=== PATIENT | female | born 1995 | race Two or more races ===

== ENCOUNTER → 2020-10-01 13:27 | Outpatient (BNVA) | payer OTHER, SELFPAY | PROVIDERS: Visit Provider Physician Assistant Medical | DX: Z77.21 Contact with and (suspected) exposure to potentially hazardous body fluids (principal) | CPT/HCPCS: 36415; 84450; 84460; 86706; 86803; 87389; 99203 ==

== ENCOUNTER 2020-11-13 14:16 | Outpatient (REF) | payer OTHER, SELFPAY ==
[2020-11-14 04:06] LABS: CT PCR NOT DETECTED (Not Detect.); NG PCR NOT DETECTED (Not Detect.)
== END 2020-11-13 14:17 | disposition home or self-care (01) ==
LOC: HO.LAB 14:16
PROVIDERS: Visit Provider Obstetrics & Gynecology
DX: R10.2 Pelvic and perineal pain (principal)
CPT/HCPCS: 81003; 81025; 87491; 87591

== ENCOUNTER 2020-11-20 14:45 | Outpatient (REF) | payer OTHER, SELFPAY ==
--- NOTE | ~2020-11-20 | US_ITS ---
EXAMINATION:US pelvic complete, US transvaginal CLINICAL INFORMATION: Reason for Exam R10.2 - Pelvic and perineal pain COMPARISON: No priors available. LMP: 10/15/2020 FINDINGS: UTERUS: The uterus is anteverted. Size: 7.6 x 2.9 x 3.3 cm. Uterine mass: There is no uterine mass. Cervix: Grossly unremarkable. Endometrium: No ultrasound evidence of endometrial lesion. endometrial thickness measures 0.91 cm ADNEXA: Normal Right ovary: Normal in size. There is a complex cystic structure probably ovarian follicle 2.2 x 2.2 x 2.8 cm. Left ovary: Normal in size. Complex cystic structure probably a follicle 2.5 x 2.1 x 2.4 cm. Doppler exam: Normal Doppler flow identified in both ovaries. FREE FLUID: Trace amount of free fluid. OTHER FINDINGS: None US/US transvaginal IMPRESSION: Bilateral ovarian cystic structures probably follicles the largest on the left measure up to 2.5 cm. Ultrasound otherwise normal.
--- NOTE | ~2020-11-20 | US_ITS ---
EXAMINATION:US pelvic complete, US transvaginal CLINICAL INFORMATION: Reason for Exam R10.2 - Pelvic and perineal pain COMPARISON: No priors available. LMP: 10/15/2020 FINDINGS: UTERUS: The uterus is anteverted. Size: 7.6 x 2.9 x 3.3 cm. Uterine mass: There is no uterine mass. Cervix: Grossly unremarkable. Endometrium: No ultrasound evidence of endometrial lesion. endometrial thickness measures 0.91 cm ADNEXA: Normal Right ovary: Normal in size. There is a complex cystic structure probably ovarian follicle 2.2 x 2.2 x 2.8 cm. Left ovary: Normal in size. Complex cystic structure probably a follicle 2.5 x 2.1 x 2.4 cm. Doppler exam: Normal Doppler flow identified in both ovaries. FREE FLUID: Trace amount of free fluid. OTHER FINDINGS: None US/US pelvic complete IMPRESSION: Bilateral ovarian cystic structures probably follicles the largest on the left measure up to 2.5 cm. Ultrasound otherwise normal.
== END 2020-11-20 14:46 | disposition home or self-care (01) ==
LOC: HO.HMGCX 14:45
PROVIDERS: Visit Provider Obstetrics & Gynecology
DX: R10.2 Pelvic and perineal pain (principal)
CPT/HCPCS: 76830; 76856

== ENCOUNTER → 2020-12-03 16:02 | Outpatient (BNVA) | payer OTHER, SELFPAY | PROVIDERS: Visit Provider Obstetrics & Gynecology ==

== ENCOUNTER 2020-12-08 12:16 | Outpatient (REF) | payer OTHER, SELFPAY ==
[2020-12-09 09:36] LABS: CA-125 18 U/mL (<35)
== END 2020-12-08 12:17 | disposition home or self-care (01) ==
LOC: HO.LAB 12:16
PROVIDERS: Visit Provider Obstetrics & Gynecology
DX: N83.291 Other ovarian cyst, right side (principal); N83.292 Other ovarian cyst, left side
CPT/HCPCS: 36415; 86304

== ENCOUNTER → 2020-12-10 11:14 | Outpatient (BNVA) | payer OTHER, SELFPAY | PROVIDERS: Visit Provider Obstetrics & Gynecology ==

== ENCOUNTER 2021-03-16 14:07 | Outpatient (REF) | payer OTHER, SELFPAY ==
--- NOTE | ~2021-03-16 | US_ITS ---
EXAMINATION: PELVIC ULTRASOUND CLINICAL INFORMATION: Ovarian cyst COMPARISON: Previous exam 11/20/2020 TECHNIQUE: Transabdominal and transvaginal pelvic ultrasound was performed. Transvaginal exam was performed for better visualization of the uterus and ovaries. FINDINGS: The uterus is anteverted and measures 6.7 x 3.3 x 3.3 cm in dimension. No focal uterine lesion is seen. Endometrial thickness is normal measuring 1.6 cm. The ovaries are normal.. The right ovary measures 4 x 2.2 x 2.5 cm. The left ovary measures 2.6 x 1.6 x 2.6 cm. There is no fluid in the pelvis. US/US transvaginal IMPRESSION: Normal pelvic ultrasound. The previously identified small bilateral complex ovarian cysts on November 2020 exam are no seen.
--- NOTE | ~2021-03-16 | US_ITS ---
EXAMINATION: PELVIC ULTRASOUND CLINICAL INFORMATION: Ovarian cyst COMPARISON: Previous exam 11/20/2020 TECHNIQUE: Transabdominal and transvaginal pelvic ultrasound was performed. Transvaginal exam was performed for better visualization of the uterus and ovaries. FINDINGS: The uterus is anteverted and measures 6.7 x 3.3 x 3.3 cm in dimension. No focal uterine lesion is seen. Endometrial thickness is normal measuring 1.6 cm. The ovaries are normal.. The right ovary measures 4 x 2.2 x 2.5 cm. The left ovary measures 2.6 x 1.6 x 2.6 cm. There is no fluid in the pelvis. US/US pelvic complete IMPRESSION: Normal pelvic ultrasound. The previously identified small bilateral complex ovarian cysts on November 2020 exam are no seen.
== END 2021-03-16 14:08 | disposition home or self-care (01) ==
LOC: HO.HMGCX 14:07
PROVIDERS: Visit Provider Obstetrics & Gynecology
DX: N83.299 Other ovarian cyst, unspecified side (principal)
CPT/HCPCS: 76830; 76856

== ENCOUNTER → 2021-04-01 11:55 | Outpatient (BNVA) | payer OTHER, SELFPAY | PROVIDERS: Visit Provider Obstetrics & Gynecology ==

== ENCOUNTER 2023-06-01 14:19 | Outpatient (REF) | payer SELFPAY | END 2023-06-01 14:20 | disposition home or self-care (01) | LOC: HO.LNP 14:19 | PROVIDERS: Visit Provider Obstetrics & Gynecology | DX: Z12.4 Encounter for screening for malignant neoplasm of cervix (principal); R10.2 Pelvic and perineal pain; N90.89 Other specified noninflammatory disorders of vulva and perineum | CPT/HCPCS: 88142; 99212 ==

== ENCOUNTER 2023-06-01 14:19 | Outpatient (AMB) | payer OTHER, SELFPAY ==
--- NOTE | 2023-06-01 14:22 | MHC.OFFVIS ---
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 No previous Pap smear PFSH Medical History PCOS (polycystic ovarian syndrome) Family History Maternal Grandmother Uterine cancer Social History Alcohol intake: current Alcohol intake frequency: holidays/special occasions only Gender identity: Female Female Reproductive History Menstrual Age of Menarche: 9 Date of last menstrual period: 05/28/23 Review of Systems Const All systems reviewed & are unremarkable except as noted in HPI and below Physical Exam Vital Signs: Last Vital Signs BP 90/66 06/01/23 14:25 BMI result Body Mass Index 24.6 General: Yes no CVA tenderness External Female Exam: normal appearance of the urethra and other (Right labia majora 2 cm lump, nontender) Speculum Exam - Vagina: normal appearance of the vagina, normal palpation, no lesions and no masses Speculum Exam - Cervix: normal appearance of the cervix, normal palpation, no lesions, no masses and nontender Bimanual exam- vagina & uterus: normal bimanual exam, normal palpation, uterine size normal, normal palpation, uterine shape normal, No Cervical tenderness present and non-tender Bimanual Exam- Adnexa, other: normal adnexae Back/Spine/Pelvis Back: no CVA tenderness Assessment & Plan Assessment & Plan Orders: Orders US biopsy subcutaneous skin Today N90.89 - Other specified noninflammatory disorders of vulva and perineum Patient Instructions: Pap smear taken. Discussed with the patient the finding on pelvic exam right labia majora lump 2 cm in size. Differential diagnosis discussed with the patient include but not limited to lipoma, cyst, and others. Will order ultrasound-guided subcutaneous biopsy of the vulvar lump, check the pathology and treat accordingly. Instructions given the patient to schedule ultrasound biopsy follow-up appointment. All questions answered, the patient verbalized understanding Coding Level of Care Code Est Pt Level 3 (67642)
[2023-06-01 14:25] VITALS: BP 90/66; BMI 24.6
== END 2023-06-01 14:51 | disposition home or self-care (01) ==
PROVIDERS: Visit Provider Obstetrics & Gynecology
DX: N90.89 Other specified noninflammatory disorders of vulva and perineum (principal)
CPT/HCPCS: 99213

== ENCOUNTER 2023-06-29 11:00 | Outpatient (REF) | payer OTHER, SELFPAY ==
--- NOTE | ~2023-06-29 | US_ITS ---
CLINICAL HISTORY: Right labial nodule PROCEDURES: 1. Limited preprocedure ultrasound of the right groin. Permanent images saved in PACS. 2. Total of 2 core biopsies of the right labial nodule. 3. Limited post procedure ultrasound of the right groin. Permanent images taken PACS. CLINICIANS: Freddie Dasilva PA-C Preprocedural imaging reviewed with Dr. Garcia MEDICATIONS: -lidocaine 1% 10 mL SQ -Antibiotics: None -For additional details, please see nursing flowsheet. COMPLICATIONS: None ESTIMATED BLOOD LOSS: < 5 ml CONTRAST: None SPECIMENS: Total of 2 20-gauge biopsies of the right labial nodule PROCEDURE NOTE: The procedure, risks, benefits, and alternatives were carefully explained to the patient and written informed consent was obtained. The patient was placed supine on the ultrasound table. A timeout was performed. A limited ultrasound of the right groin was performed to localize the right labial lesion and choose appropriate needle entry and trajectory. The patient was prepped and draped in usual sterile fashion. The skin and subcutaneous tissues were anesthetized with lidocaine. Under ultrasound guidance, a trocar was advanced to the lesion. A 20-gauge core biopsy device was inserted through the double wall needle, with the needle tip advanced into the lesion. Position was confirmed with ultrasound evaluation. A total of 2 core biopsies were obtained. The needle was then removed. A post procedure ultrasound was then obtained. US/US biopsy subcutaneous skin Impression: Ultrasound-guided biopsy of right labial nodule This procedure was performed by Freddie Dasilva PA-C and supervised by Dr. Nathan.
[2023-06-29] MEDS: Lidocaine HCl 1 % MPF 5 ML VIAL SUBCUT (12:24)
== END 2023-06-29 11:01 | disposition home or self-care (01) ==
LOC: HO.US 11:00
PROVIDERS: Visit Provider Obstetrics & Gynecology
DX: N90.89 Other specified noninflammatory disorders of vulva and perineum (principal)
CPT/HCPCS: 11104; 88304; 88305

== ENCOUNTER 2023-07-13 15:57 | Outpatient (AMB) | payer OTHER, SELFPAY ==
--- NOTE | 2023-07-13 16:00 | A.OFFVIS_ITS ---
Intake Intake Visit Reasons: Follow up results Customer Service Officer: Customer Service Officer Present Allergies No Known Allergies [No Known Allergies*] Allergy (Verified 07/13/23 16:01) Is last menstrual period known: Yes Last menstrual period: 06/11/20 Post menopausal: No Patient : No Do you need a note to return to daycare/school/sports/work: Yes (for surgery on monday) HPI HPI Comments History of Present Illness Details Presenting after ultrasound-guided biopsy of right vulvar lump for follow-up. The pathology showed the following: Vulva, right labial soft tissue nodule, core biopsy: Subcutaneous tissue with benign skin adnexal glands, fibrosis and dense chronic inflammatory infiltrate. Comment: Although no malignancy is identified the tissue is non-diagnostic and the etiology of the nodule cannot be made on this tissue. Possibilities include inflammatory response to trauma, cyst, or unsampled benign and malignant neoplasias. Clinical follow-up is necessary with rebiopsy if suspicious [facility]ACED BY [facility] Medical History PCOS (polycystic ovarian syndrome) Family History Maternal Grandmother Uterine cancer Social History Alcohol intake: current Alcohol intake frequency: holidays/special occasions only Gender identity: Female Female Reproductive History Menstrual Age of Menarche: 9 Date of last menstrual period: 06/11/20 Total pregnancies: 2 Full term: 2 Review of Systems Card Reports as per HPI and Reports no additional complaints Resp Reports as per HPI and Reports no additional complaints GI Reports as per HPI and Reports no additional complaints Reports as per HPI Physical Exam Const General: cooperative, healthy appearing and comfortable Chest Chest palpation & inspection: normal inspection of the chest and normal palpation of entire chest wall Breast/axilla inspection: normal inspection of the breasts and normal inspection of the axillae Breast/axilla palpation: normal palpation of the breasts, normal palpation of the axillae and no axillary lymphadenopathy Resp Effort & Inspection: normal respiratory effort Auscultation: clear to auscultation bilaterally Percussion: percussion normal Cardio Palpation: normal PMI Rate: regular rate Rhythm: regular rhythm Heart sounds: no murmurs and no rubs Peripheral pulses: Peripheral pulses 2+ throughout GI Inspection: Yes normal to inspection Palpation (GI): Soft to palpation, nontender, no guarding, not rigid and No hepatosplenomegaly present Percussion: Yes normal to percussion Auscultation: normal bowel sounds Rectal Exam - Female: deferred External Female Exam: other (Right labia majora lump) Assessment & Plan Assessment & Plan (1) Vulvar lump: Comment: Right labia majora Code(s): N90.89 - Other specified noninflammatory disorders of vulva and perineum Plan: Discussed with the patient resolve the pathology. Recommended right vulvar lump excision, d/w patient the procedure, alternatives (do nothing), & all the risks associated with the procedure (bleeding , infection, scar tissue development, chronic dyspareunia, injury to bladder, vessels, bowels, possible need for transfusion with all its risks) then the patient signed the consent . All questions answered, the patient verbalized understanding Coding Level of Care Code Est Pt Level 3 (14157) Diagnoses Vulvar lump N90.89
== END 2023-07-13 16:25 | disposition home or self-care (01) ==
PROVIDERS: Visit Provider Obstetrics & Gynecology
DX: N90.89 Other specified noninflammatory disorders of vulva and perineum (principal)
CPT/HCPCS: 99213

== ENCOUNTER → 2023-07-13 15:57 | Outpatient (BNVA) | payer OTHER, SELFPAY | PROVIDERS: Visit Provider Obstetrics & Gynecology | DX: N90.89 Other specified noninflammatory disorders of vulva and perineum (principal) | CPT/HCPCS: 99212 ==

== ENCOUNTER 2023-07-21 09:57 | Day surgery (SDC) | payer OTHER, SELFPAY ==
--- NOTE | 2023-07-19 14:11 | P.CONAN_ITS ---
Documented by User: Luz Marina Oliveros NP 07/19/23 14:11 HPI - Anesthesia Eval Consult details Narrative: 27yo F for Labial Lump Excision Mass PMFSH Active Problems Active Problems: All Active Problems (Updated 07/13/23 @ 16:19 by Chele Teran MD) Vulvar lump (Acute) Complex cyst of both ovaries (Acute) Pelvic pain (Acute) Past Medical History Medical History PCOS (polycystic ovarian syndrome) Family History Family History Maternal Grandmother Uterine cancer Social History Social History Alcohol intake: current Alcohol intake frequency: holidays/special occasions only Patient Tobacco Use Status: Never used Tobacco Use of substances other than those prescribed or required for medical reasons: Yes Are you DNR?: No Advance Directives: No Advance Directives Information Provided: Yes Gender identity: Female Meds Allergies Allergy/AdvReac Type Severity Reaction Status Date / Time No Known Allergies Allergy Verified 07/21/23 10:44 [No Known Allergies*] Home Medications Medication Instructions Recorded Confirmed Last Taken Type No Known Home Meds 06/01/23 06/01/23 Unknown History Assessment and Plan Assessment Anesthesia Assessment: Chart Reviewed Documented by User: John Pierre MD 07/21/23 11:32 [facility] Past Medical History Medical History PCOS (polycystic ovarian syndrome) Patient : No Family History Family History Maternal Grandmother Uterine cancer Family history of problems with anesthesia: No Surgical History History of Problems with Anesthesia: No Social History Social History Alcohol intake: current Alcohol intake frequency: holidays/special occasions only Patient Tobacco Use Status: Never used Tobacco Use of substances other than those prescribed or required for medical reasons: Yes Are you DNR?: No Advance Directives: No Advance Directives Information Provided: Yes Gender identity: Female Meds Allergies Allergy/AdvReac Type Severity Reaction Status Date / Time No Known Allergies Allergy Verified 07/21/23 10:44 [No Known Allergies*] Home Medications Medication Instructions Recorded Confirmed Last Taken Type No Known Home Meds 06/01/23 06/01/23 Unknown History Exam Airway Mallampati Class: I TM Dist: >3cm Neck ROM: Full Loose/Missing/Broken Teeth: No Heart: ok Lungs: ok Assessment and Plan Assessment Anesthesia Assessment: Anesthesia Plan Discussed Final Anesthetic Review Family History of Problems with Anesthesia: No History of Problems with Anesthesia: No NPO: Yes ASA Class: II Final Preanesthetic Review: No Changes in Pt Med Stat, Meds/Allgs Chart Reviewed, Consent Obtained/Reviewed and Anes Risks/Benef Reviewed Patient Risk: Low Procedure Risk: Low Anesthetic Plan Anesthetic Plan: GA and Agree w/ Assess. and Plan Disposition: Standard PACU
[2023-07-21 10:45] VITALS: BMI 24.1
[2023-07-21 11:18] VITALS: BP 129/69; PULSE 68; RESP 16; TEMP 36.6; O2SAT 97
[2023-07-21] MEDS: Lactated Ringers 1,000 ML 100 ML IVCONT (11:20)
--- NOTE | 2023-07-21 11:26 | MHC.SHP ---
Pre-Procedural Eval Section A Date of Service: 07/21/23 The patient is an INPATIENT: No Changes since office visit: No Cold of Flu in the past 2 weeks, No New Medical Problems, No Changes in Medication and No Patient answered all questions The History & Physical has been completed within 30 days and I have reviewed it.: Yes Section B Chief Complaint: Other specified noninflammatory disorders of vulva Allergies: Allergies Allergy/AdvReac Type Severity Reaction Status Date / Time No Known Allergies Allergy Verified 07/21/23 10:44 [No Known Allergies*] Plan Diagnosis/Plan: Unchanged I have reviewed the history and physical and performed a pertinent physical examination on my patient. No changes have occurred unless specified. Time Spent With Patient Time: Total time managing care of this patient today ____ minutes.
[2023-07-21 11:28] LABS: UPreg QC Valid YES; Urine Pregnancy NEGATIVE (NEGATIVE)
--- NOTE | 2023-07-21 12:11 | PM.OP ---
Brief Operative Note Date of Service: 07/21/23 Pre-op diagnosis: Right vulvar lump Post-op diagnosis: same Procedure: Excision of right vulvar lump Surgeon: Chele Teran MD Anesthesia: GLMA Was an Nurse Midwife/Clinical Instructor used for this Procedure?: No Estimated blood loss (mL): 20 Pathology: other (Right vulvar Subcuticular tissue/lump) Condition: stable Disposition: PACU
--- NOTE | 2023-07-21 12:12 | W.PM.OPN ---
Operative Note Operative Note Date of Service: 07/21/23 Narrative: Preop diagnosis : Right vulvar lump Operation: Excision of right subcutaneous/ vulvar lump Postop diagnosis: A right vulvar lump/subcutaneous tissue EBL: 20 cc Pathology: Subcutaneous tissue/vulvar lump Anesthesia: GLMA Complications: None since Procedure: The patient was put in the dorsal system was verdugo was scrubbed and draped in the usual sterile fashion, a longitudinal incision was done using Scalpel , the incision was carried down to the subcutaneous tissue. Then using a a retractor to retract the skin, the subcutaneous tissue containing the lump was grasped with Allis clamp, and using Bovie the subcutaneous tissue was excised. Hemostasis was assured using cauterization. 3-0 Vicryl was used to close the subcuticular layer. The skin was closed with 4-0 Vicryl. The patient tolerated the procedure and was transferred to PACU in stable condition
[2023-07-21 12:22] VITALS: BP 100/59; PULSE 83; RESP 16; TEMP 36.1; O2SAT 100
[2023-07-21 12:27] VITALS: BP 103/61; PULSE 69; RESP 16; O2SAT 100
[2023-07-21 12:32] VITALS: BP 102/63; PULSE 81; RESP 16; O2SAT 100
[2023-07-21] MEDS: Acetaminophen 325 MG TABLET 650 MG PO (12:33)
[2023-07-21] MEDS: oxyCODONE HCl Immed Release 5 MG TABLET PO (12:33)
[2023-07-21 12:37] VITALS: BP 110/68; PULSE 70; RESP 16; O2SAT 100
[2023-07-21 12:52] VITALS: PULSE 55; RESP 16; TEMP 36.1; O2SAT 100
== END 2023-07-21 13:33 | disposition home or self-care (01) ==
PROVIDERS: Visit Provider Obstetrics & Gynecology
PROC: (CPT 11421; principal; 2023-07-21 11:30)
DX: N90.89 Other specified noninflammatory disorders of vulva and perineum (principal); E28.2 Polycystic ovarian syndrome
CPT/HCPCS: 11421; 81025; 88305; J0665; J1885; J2405; J2704; J3010

== ENCOUNTER → 2023-07-21 09:57 | Outpatient (BNV) | payer OTHER, SELFPAY | PROVIDERS: Visit Provider Obstetrics & Gynecology | DX: N90.89 Other specified noninflammatory disorders of vulva and perineum (principal) | CPT/HCPCS: 11421 ==

== ENCOUNTER 2023-08-02 15:35 | Outpatient (AMB) | payer OTHER, SELFPAY ==
--- NOTE | 2023-08-02 15:44 | A.OFFVIS_ITS ---
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 Doing well with no complaints. The pathology showed the following: Vulva, right lump, excision: Fibrovascular, adipose and granulation tissue; no epithelium identified; negative for dysplasia or malignancy PFSH Medical History PCOS (polycystic ovarian syndrome) Family History Maternal Grandmother Uterine cancer Social History Alcohol intake: current Alcohol intake frequency: holidays/special occasions only Patient Tobacco Use Status: Never used Tobacco Gender identity: Female Female Reproductive History Menstrual Age of Menarche: 9 control method: none Review of Systems Const All systems reviewed & are unremarkable except as noted in HPI and below Reports as per HPI and Reports no additional complaints GI Reports no additional complaints Reports no additional complaints Physical Exam Vital Signs: Last Vital Signs BP 108/62 08/02/23 15:46 BMI result Body Mass Index 24.0 Assessment & Plan Assessment & Plan (1) Vulvar lump: Comment: Right labia majora Code(s): N90.89 - Other specified noninflammatory disorders of vulva and perineum Plan: Discussed with the patient the intraoperative finding the results the pathology showing Fibrovascular, adipose and granulation tissue; the sensitivity, specificity, false-positive false-negative rate of identifying any pathology were discussed with the patient including the risk of missing any abnormal pathology subcutaneously. Instructions given the patient to call if the lump recurs. All questions answered, the patient verbalized understanding Coding Level of Care Code Est Pt Level 3 (32097) Diagnoses Vulvar lump N90.89
[2023-08-02 15:46] VITALS: BP 108/62; BMI 24.0
== END 2023-08-02 16:04 | disposition home or self-care (01) ==
LOC: HO.HWS 15:35
PROVIDERS: Visit Provider Obstetrics & Gynecology
DX: N90.89 Other specified noninflammatory disorders of vulva and perineum (principal)
CPT/HCPCS: 99213

== ENCOUNTER → 2023-08-02 15:35 | Outpatient (BNVA) | payer OTHER, SELFPAY | PROVIDERS: Visit Provider Obstetrics & Gynecology | DX: Z48.816 Encounter for surgical aftercare following surgery on the genitourinary system (principal); Z98.890 Other specified postprocedural states | CPT/HCPCS: 99212 ==

== ENCOUNTER 2023-08-23 10:10 | Outpatient (REF) | payer OTHER, SELFPAY ==
[2023-08-23 11:24] LABS: HCG Quantitative 13 mIU/mL
== END 2023-08-23 10:11 | disposition home or self-care (01) ==
LOC: HO.LAB 10:10
PROVIDERS: PCP Internal Medicine; Visit Provider Obstetrics & Gynecology
DX: O20.0 Threatened abortion (principal); Z3A.01 Less than 8 weeks gestation of pregnancy
CPT/HCPCS: 36415; 84702

== ENCOUNTER 2023-08-24 09:15 | Outpatient (REF) | payer OTHER, SELFPAY ==
--- NOTE | ~2023-08-24 | US_ITS ---
EXAMINATION: US OBSTETRICAL ULTRASOUND CLINICAL INFORMATION: Vaginal bleeding. Quantitative hCG 14. COMPARISON: 03/16/2021 LMP: Unknown. TECHNIQUE: Transabdominal and transvaginal imaging of the pelvis was performed. FINDINGS: The uterus is anteverted. Uterine echotexture is heterogeneous. The uterus measures 5.9 x 2.1 x 2.1 cm. The endometrium measures 0.5 cm in thickness. There is no evidence of intrauterine gestational sac. Color Doppler flow of the endometrium was not assessed. ADNEXA: The right ovary measures 3.0 x 2.2 x 2.6 cm. The left ovary measures 3.2 x 1.7 x 1.9 cm. No significant pelvic ascites. US/US OB pelvic and transvaginal IMPRESSION: No sonographic evidence of intrauterine .
[2023-08-24 10:03] LABS: HCG Quantitative 14 mIU/mL
[2023-08-24 15:12] LABS: CT PCR NOT DETECTED (Not Detect.); NG PCR NOT DETECTED (Not Detect.)
== END 2023-08-24 09:16 | disposition home or self-care (01) ==
LOC: HO.US 09:15
PROVIDERS: PCP Internal Medicine; Visit Provider Obstetrics & Gynecology
DX: O20.0 Threatened abortion (principal); R10.2 Pelvic and perineal pain; R79.89 Other specified abnormal findings of blood chemistry
CPT/HCPCS: 0353U; 36415; 76801; 76817; 84702; 86850; 86900; 99212

== ENCOUNTER 2023-08-24 12:02 | Outpatient (AMB) | payer OTHER, SELFPAY ==
--- NOTE | 2023-08-24 12:07 | MHC.OFFVIS ---
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 The patient had menstrual cycle on had 1 episode of unprotected intercourse 08/09 and vaginal bleeding starting 08/09, went to [facility] emergency room on hCG was 14 and pelvic ultrasound negative according to the patient no report is available. Repeat hCG were the followin/6 HCG =13 08/21 HCG =10 08/23 HCG =13 08/24 HCG =14 Pelvic ultrasound done today showed the following: The uterus is anteverted. Uterine echotexture is heterogeneous. The uterus measures 5.9 x 2.1 x 2.1 cm. The endometrium measures 0.5 cm in thickness. There is no evidence of intrauterine gestational sac. Color Doppler flow of the endometrium was not assessed. ADNEXA: The right ovary measures 3.0 x 2.2 x 2.6 cm. The left ovary measures 3.2 x 1.7 x 1.9 cm. No significant pelvic ascites. [facility] Medical History PCOS (polycystic ovarian syndrome) Family History Maternal Grandmother Uterine cancer Social History Alcohol intake: current Alcohol intake frequency: holidays/special occasions only Patient Tobacco Use Status: Never used Tobacco Gender identity: Female Female Reproductive History Menstrual Age of Menarche: 9 Review of Systems Const All systems reviewed & are unremarkable except as noted in HPI and below Physical Exam Vital Signs: Last Vital Signs BP 110/66 08/24/23 12:10 BMI result Body Mass Index 23.7 General: Yes no CVA tenderness External Female Exam: normal external appearance and normal appearance of the urethra Speculum Exam - Vagina: normal appearance of the vagina, normal palpation, no lesions and no masses Speculum Exam - Cervix: normal appearance of the cervix, normal palpation, no lesions, no masses and nontender Bimanual exam- vagina & uterus: normal bimanual exam, normal palpation, uterine size normal, normal palpation, uterine shape normal, No Cervical tenderness present and non-tender Bimanual Exam- Adnexa, other: normal adnexae Back/Spine/Pelvis Back: no CVA tenderness Assessment & Plan Assessment & Plan (1) Elevated serum hCG: Code(s): R79.89 - Other specified abnormal findings of blood chemistry Plan: GC/CT taken , screen ordered. Discussed with the patient the differential diagnosis of persistently elevated hCG including GTD, incomplete SAB, ectopic and others. Recommended repeat hCG every 48 hours x2 and follow-up in 4 days. if hCG increases and suspicious of ectopic will treat with methotrexate, if hCG dropped down to 0 the diagnosis will be complete miscarriage if hCG is persistent will proceed with suction D&C to rule out GTD/incomplete . Instructions given to patient to call or go to emergency room in case of pelvic pain and or vaginal bleeding. All questions answered, the patient verbalized understanding. Orders: Orders HCG Quantitative 08/26/23 R79.89 - Other specified abnormal findings of blood chemistry Screen Today R79.89 - Other specified abnormal findings of blood chemistry HCG Quantitative Today O20.0 - Threatened HCG Quantitative 08/28/23 R79.89 - Other specified abnormal findings of blood chemistry Coding Level of Care Code Est Pt Level 3 (86882) Diagnoses Elevated serum hCG R79.89
[2023-08-24 12:10] VITALS: BP 110/66; BMI 23.7
== END 2023-08-24 12:42 | disposition home or self-care (01) ==
LOC: HO.HWS 12:02
PROVIDERS: PCP Internal Medicine; Visit Provider Obstetrics & Gynecology
DX: R79.89 Other specified abnormal findings of blood chemistry (principal)
CPT/HCPCS: 99213

== ENCOUNTER 2023-08-24 12:41 | Outpatient (REF) | payer OTHER, SELFPAY | END 2023-08-24 12:42 | disposition home or self-care (01) | LOC: HO.LNP 12:41 | PROVIDERS: Visit Provider Obstetrics & Gynecology | DX: Z13.89 Encounter for screening for other disorder (principal) ==

== ENCOUNTER 2023-08-26 10:07 | Outpatient (REF) | payer OTHER, SELFPAY ==
[2023-08-26 11:16] LABS: HCG Quantitative 21 mIU/mL
== END 2023-08-26 10:08 | disposition home or self-care (01) ==
LOC: HO.LAB 10:07
PROVIDERS: Visit Provider Obstetrics & Gynecology
DX: R79.89 Other specified abnormal findings of blood chemistry (principal)
CPT/HCPCS: 36415; 84702

== ENCOUNTER 2023-08-28 10:03 | Outpatient (REF) | payer OTHER, SELFPAY ==
[2023-08-28 11:52] LABS: HCG Quantitative 25 mIU/mL
== END 2023-08-28 10:04 | disposition home or self-care (01) ==
LOC: HO.LAB 10:03
PROVIDERS: Visit Provider Obstetrics & Gynecology
DX: R79.89 Other specified abnormal findings of blood chemistry (principal); O99.281 Endocrine, nutritional and metabolic diseases complicating pregnancy, first trimester; E28.2 Polycystic ovarian syndrome; Z3A.00 Weeks of gestation of pregnancy not specified
CPT/HCPCS: 36415; 84702; 99212

== ENCOUNTER 2023-08-28 11:59 | Outpatient (AMB) | payer OTHER, SELFPAY ==
[2023-08-28 12:03] VITALS: BP 108/66; BMI 23.6
--- NOTE | 2023-08-28 12:03 | A.OFFVIS_ITS ---
Intake Vital Signs 08/28/23 12:03 Height 5 ft Weight 121 lb BMI 23.6 BP 108/66 Intake Visit Reasons: HCG Follow up Electronic Tester Required: No Allergies No Known Allergies [No Known Allergies*] Allergy (Verified 08/28/23 12:04) Post menopausal: Yes HPI HPI Comments History of Present Illness Details Presenting for hCG follow-up. Doing well with no complaints. No abdominal/pelvic pain or vaginal bleeding. A positive. GC/CT were negative. 08/19 HCG =13 08/21 HCG =10 08/23 HCG =13 08/24 HCG =14 08/26 hCG= 21 08/28 hCG=25 [facility] Medical History PCOS (polycystic ovarian syndrome) Family History Maternal Grandmother Uterine cancer Social History Alcohol intake: current Alcohol intake frequency: holidays/special occasions only Patient Tobacco Use Status: Never used Tobacco Gender identity: Female Female Reproductive History Menstrual Age of Menarche: 9 control method: none Review of Systems Const All systems reviewed & are unremarkable except as noted in HPI and below Reports as per HPI and Reports no additional complaints GI Reports no additional complaints Reports no additional complaints Physical Exam Vital Signs: Last Vital Signs BP 108/66 08/28/23 12:03 BMI result Body Mass Index 23.6 GI Inspection: Yes normal to inspection Palpation (GI): Soft to palpation, nontender and no guarding Assessment & Plan Assessment & Plan (1) Early stage of : Code(s): Z34.90 - Encounter for supervision of normal , unspecified, unspecified trimester Plan: Discussed with the patient the rate of rise of HCG level is below the 49% last 48 hours, which is expected in the majority of normal intrauterine gestation. The differential diagnosis discussed with the patient included either early ectopic versus early SAB with a small possibility of normal int rauterine gestation. Options of treatment were discussed with the patient includin- Expected management for the coming 48 hours and repeat HCG with or without pelvic Ultrasound. 2- Treat as if she has tubal with methotrexate or 3- Uterine aspiration. All the pros and cons and risks and benefits of each treatment approach were discussed with the patient. 1-The advantage of expectant management were discussed with the patient, being prevention of possible exposure to teratogenicity or risk of spontaneous in case of an early normal , the risk being delayed diagnosis and treatment of ectopic and possible rupture with all its possible consequences including intra-abdominal bleed and possible . 2- Explained to the patient that the use of curettage as a diagnostic tool is limited by the potential for disruption of a viable . In addition, discussed with the patient that the sensitivity of curettage in finding chorionic villi is only 70 percent. Pipelle endometrial biopsy is even less sensitive than curettage for detection of villi; sensitivities reported is between 30 and 60 percent. If curettage is performed, serum HCG levels can be followed postcurettage if histopathology does not confirm the clinical impression. When an IUP has been evacuated, hCG levels should drop by at least 15 percent the day after evacuation. There might be an advantage of performing aspiration only on patients with both an HCG concentration below the discriminatory zone and a low doubling rate, since 30 percent of these patients have a nonviable intrauterine gestation, and the remainder have an ectopic . Knowing the results of aspiration avoids unnecessary methotrexate treatment of the 30 percent of patients without ectopic . 3-Furthermore discussed with the patient the 3rd option which is treatment with methotrexate without uterine aspiration. The advantage of early treatment of presumed tubal with methotrexate was discussed with the patient, including but not limited to reducing the risk of ruptured ectopic with all its potential consequences, in addition discussed with the patient methotrexate treatment risks including but not limited to, possible exposure to methotrexate to a normal intra and and increase the risk of spontaneous and congenital anomalies. The patient decided to wait 48 hours repeat HCG and treat accordingly. Instructions given to the patient to the importance of compliance and timely HCG follow-up in 48 hours for an early and accurate diagnosis, and to call or go to the emergency room if pain or vaginal bleeding occurs, all questions answered, the patient verbalized understanding and agreed with the plan. Will repeat hCG and ultrasound in 48 hours. Instructions given the patient to follow-up in 48 hours for further management. Orders: Orders HCG Quantitative 2 Days Z34.90 - Encounter for supervision of normal , unspecified, unspecified trimester US pelvic and transvaginal 2 Days Z34.90 - Encounter for supervision of normal , unspecified, unspecified trimester Coding Level of Care Code Est Pt Level 3 (92247) Diagnoses Early stage of Z34.90
== END 2023-08-28 12:15 | disposition home or self-care (01) ==
LOC: HO.HWS 11:59
PROVIDERS: PCP Internal Medicine; Visit Provider Obstetrics & Gynecology
DX: Z34.90 Encounter for supervision of normal pregnancy, unspecified, unspecified trimester (principal)
CPT/HCPCS: 99213

== ENCOUNTER 2023-08-30 11:40 | Outpatient (REF) | payer OTHER, SELFPAY ==
--- NOTE | ~2023-08-30 | US_ITS ---
EXAMINATION: US OBSTETRICAL ULTRASOUND CLINICAL INFORMATION: Abnormal rising hCG levels. Vaginal bleeding. COMPARISON: Ultrasound OB 08/24/2023. LMP: Unknown. Gestational age by maternal dates is unknown. Estimated date of delivery by maternal dates is unknown. TECHNIQUE: Transabdominal imaging of pelvis is performed. FINDINGS: The uterus is anteverted measuring 7.2 mL in length, 2.237 AP and 3.22 cm and transverse dimension. Endometrial stripe thickness is 1.15 cm. No intrauterine gestational sac, pole or yolk sac seen. The right maternal ovary measures 3.1 x 2.4 x 2.3 cm. No focal lesion seen. The left maternal ovary measures 2.9 x 2.2 x 2.1 cm. No focal lesion seen There is no significant maternal adnexal mass. There is minimal fluid in the cul-de-sac.. US/US OB pelvic and transvaginal IMPRESSION: No intrauterine gestational sac, pole or yolk sac seen. The ovaries are unremarkable. No adnexal mass seen. Small fluid in the cul-de-sac likely physiological.
[2023-08-30 12:41] LABS: HCG Quantitative 25 mIU/mL
[2023-08-30 14:22] LABS: Alanine Aminotransferase 10 U/L (0-31); Aspartate Amino Transferase 12 U/L (5-31); Estimated Glomerular Filt Rate > 60
[2023-08-30 14:57] LABS: Hematocrit 42.5 % (37.0-47.0); Hemoglobin 13.9 g/dl (12.0-16.0); Mean Corpuscular HGB Conc 32.7 g/dl (31.0-35.0); Mean Corpuscular Hemoglobin 28.1 pg (27.0-33.0); Mean Corpuscular Volume 85.9 fL (80.0-98.0); Mean Platelet Volume 10.7 fL (9.4-12.3); Platelet Count 234 X10*3/uL (160-400); Red Blood Count 4.95 X10*6/uL (4.20-5.50); Red Cell Distribution Width 13.2 % (11.0-16.0); White Blood Count 9.3 X10*3/uL (4.8-10.8)
== END 2023-08-30 11:41 | disposition home or self-care (01) ==
LOC: HO.US 11:40
PROVIDERS: PCP Internal Medicine; Visit Provider Obstetrics & Gynecology
DX: Z34.90 Encounter for supervision of normal pregnancy, unspecified, unspecified trimester (principal)
CPT/HCPCS: 36415; 76801; 76817; 82565; 84450; 84460; 84702; 85027; 99212

== ENCOUNTER 2023-08-30 13:23 | Outpatient (AMB) | payer OTHER, SELFPAY ==
--- NOTE | 2023-08-30 13:26 | MHC.OFFVIS ---
Intake Vital Signs 08/30/23 13:28 Height 5 ft Weight 119 lb 0.794 oz BMI 23.2 BP 108/70 Intake Visit Reasons: HCG/U/F follow up Allergies No Known Allergies [No Known Allergies*] Allergy (Verified 08/28/23 12:04) HPI HPI Comments History of Present Illness Details Presenting for hCG follow-up. Doing well with no complaints. No abdominal/pelvic pain or vaginal bleeding. A positive. GC/CT were negative. 08/19 HCG =13 08/21 HCG =10 08/23 HCG =13 08/24 HCG =14 08/26 hCG= 21 08/28 hCG=25 08/30 HCG= 25 CBC, platelets, AST, ALT, creatinine are within normal Pelvic US done today showed the following: The uterus is anteverted measuring 7.2 mL in length, 2.237 AP and 3.22 cm and transverse dimension. Endometrial stripe thickness is 1.15 cm. No intrauterine gestational sac, pole or yolk sac seen. The right maternal ovary measures 3.1 x 2.4 x 2.3 cm. No focal lesion seen. The left maternal ovary measures 2.9 x 2.2 x 2.1 cm. No focal lesion seen There is no significant maternal adnexal mass. There is minimal fluid in the cul-de-sac.. ON LICENSE OF [facility] Medical History PCOS (polycystic ovarian syndrome) Family History Maternal Grandmother Uterine cancer Social History Alcohol intake: current Alcohol intake frequency: holidays/special occasions only Patient Tobacco Use Status: Never used Tobacco Gender identity: Female Female Reproductive History Menstrual Age of Menarche: 9 Review of Systems Const All systems reviewed & are unremarkable except as noted in HPI and below Reports as per HPI and Reports no additional complaints GI Reports no additional complaints Reports no additional complaints Physical Exam Vital Signs: Last Vital Signs BP 108/70 08/30/23 13:28 BMI result Body Mass Index 23.2 Assessment & Plan Assessment & Plan (1) Early stage of : Comment: Abnormal hCG Code(s): Z34.90 - Encounter for supervision of normal , unspecified, unspecified trimester Plan: Discussed with the patient the findings on ultrasound also discussed the patient the HCG levels. The ddx includes but not limited to : ectopic although nonviable intrauterine is still a possibility. Discussed with the patient treatment options including the following: Option 1, expected management, repeat HCG every 48 hours with warning signs of SAB versus ectopic, waiting for the clinical picture is a little more clear to the diagnosis of ectopic versus intrauterine with the risk of delaying diagnosis of an ectopic intra-abdominal rupture and bleeding and risk of morbidity mortality and benefit of preventing methotrexate treatment and its possible exposure of a possible intrauterine and risk of teratogenicity and SAB. Option 2, to start with Suction D and C to rule out intrauterine followed by HCG levels and determined SAB versus ectopic, the risk of this approach being termination of a live intrauterine that is early undetected by ultrasound, the risk being delayed diagnosis of ectopic and/or potential consequences. Option 3 is methotrexate treatment; All the pros and cons risks and benefits of this approach were discussed with the patient including but not limited to, failure rate of MTX ~15%, possible exposure of methotrexate teratogenicity to an early intrauterine not diagnosed by ultrasound with the risk of SAB and severe deformities, possibility of a early intrauterine . The patient decided to proceed with methotrexate treatment. Discussed with the patient the common side effects of the medication, including skin rash, sensitivity to the sun, indigestion, nausea, sore mouth were discussed with the patient. Less common side effects (occurring in less than 2% of patients) were also discussed a drop in blood cell counts or temporary elevation in liver enzymes. All questions were answered and recommended follow up reviewed. Plan methotrexate 50 mg/m2 BSA x 1.47 m2 BSA = 74mg methotrexate IM x 1. Patient information sheet was given to the patient and instructed patient not to have intercourse or perform strenuous exercises or activities avoid sun exposure and to oncology for lab orders including CBC platelets liver function and creatinine if negative next step patient will be given methotrexate treatment in the emergency room. Mirta methods time analyst was called and discussed with her the case to check CBC, liver function tests and creatinine and if negative to proceed with methotrexate order of 74 mg IM. The patient was given to the instructions to follow up with HG day 4 and 7 and follow with an appointment day 7. Signs and symptoms of ruptured ectopic discussed with the patient, she is to call or go to the ER if abdominal pain occurs, Otherwise will follow up with HCG day 4 and repeat HCG day 7 and a follow-up appointment. All questions were answered pt verbalized understanding. Option 3 is methotrexate treatment; All the pros and cons risks and benefits of this approach were discussed with the patient including but not limited to, failure rate of MTX ~15%, possible exposure of methotrexate teratogenicity to an early intrauterine not diagnosed by ultrasound with the risk of SAB and severe deformities, possibility of a early intrauterine . The patient decided to proceed with methotrexate treatment. Discussed with the patient the common side effects of the medication, including skin rash, sensitivity to the sun, indigestion, nausea, sore mouth were discussed with the patient. Less common side effects (occurring in less than 2% of patients) were also discussed a drop in blood cell counts or temporary elevation in liver enzymes. All questions were answered and recommended follow up reviewed. Plan methotrexate 50 mg/m2 BSA x 1.51 m2 BSA = 75mg methotrexate IM x 1. Patient information sheet was given to the patient and instructed patient not to have intercourse or perform strenuous exercises or activities avoid sun exposure and to the emergency room where she will be given methotrexate treatment. The patient was given to the instructions to follow up with HCG day 4 and 7 and follow with an appointment day 7. Signs and symptoms of ruptured ectopic discussed with the patient, she is to call or go to the ER if abdominal pain occurs, Otherwise will follow up with HCG day 4 and repeat HCG day 7 and a follow-up appointment. All questions were answered pt verbalized understanding. (2) Family planning: Code(s): Z30.09 - Encounter for other general counseling and advice on contraception Plan: Discussed with the patient the different options of control including control pills/Nuvaring, DMPA, IUD (Mirena, Paraguard), sterilization. All the pros, cons, risks and benefits of each were discussed with the patient. The patient decided to go ahead with Nuvaring so a more detailed discussion re: bcp including mechanism of action, benefits ( Regular menses, less dysmenorrhea, less risk of ovarian cancer, ...), risks ( DVT, PE, Strokes, NH, increased breast ca, others). Instructions were given to use a backup method for contraception x 1st 2 week. Nuvaring x 3 weeks then 1 week off. Instructions given to the pt to discard it if out for >4 hours and start a new ring with 2 weeks back up method for contraception and to schedule a 3 month follow-up appointment. Orders: Orders Complete Blood Count no Diff Today Z34.90 - Encounter for supervision of normal , unspecified, unspecified trimester HCG Quantitative 09/05/23 Z34.90 - Encounter for supervision of normal , unspecified, unspecified trimester Aspartate Amino Transferase Today Z34.90 - Encounter for supervision of normal , unspecified, unspecified trimester Alanine Aminotransferase Today Z34.90 - Encounter for supervision of normal , unspecified, unspecified trimester Creatinine Today Z34.90 - Encounter for supervision of normal , unspecified, unspecified trimester HCG Quantitative 09/02/23 Z34.90 - Encounter for supervision of normal , unspecified, unspecified trimester Medications: New etonogestrel-ethinyl estradiol 0.12-0.015 mg/24 hr (NuvaRing) leave in place for 3 weeks of a 4-week cycle 1 vag ring vaginal Q4W 3 ea 0RF Coding Level of Care Code Est Pt Level 3 (55214) Diagnoses Early stage of Z34.90 Family planning Z30.09
[2023-08-30 13:28] VITALS: BP 108/70; BMI 23.2
== END 2023-08-30 15:32 | disposition home or self-care (01) ==
PROVIDERS: PCP Internal Medicine; Visit Provider Obstetrics & Gynecology
DX: Z34.90 Encounter for supervision of normal pregnancy, unspecified, unspecified trimester (principal); Z30.09 Encounter for other general counseling and advice on contraception
CPT/HCPCS: 99213

== ENCOUNTER 2023-08-30 15:16 | Emergency (ER) | payer OTHER, SELFPAY ==
[2023-08-30 15:39] VITALS: BP 130/81; PULSE 64; RESP 20; TEMP 36.8; O2SAT 100; BMI 23.2
--- NOTE | 2023-08-30 15:39 | ED_ITS ---
HPI - General Chief complaint: Recheck/Abnormal Lab/Rx Stated complaint: Needs a shot Time Seen by Provider: 08/30/23 15:36 Source: patient Mode of arrival: ambulatory Limitations: no limitations History of Present Illness HPI Narrative: Patient sent by OBG Dr Teran for methotrexate treatment for incomplete miscarriage patient's labs were done earlier which were normal minimal vaginal bleed no significant abdominal pain Related Data Previous Rx's Medication Instructions Recorded etonogestrel 0.12 mg-ethinyl 1 vag ring vaginal Q4W #3 ea 08/30/23 estradiol 0.015 mg/24 hr vaginal ring (NuvaRing) Allergies Allergy/AdvReac Type Severity Reaction Status Date / Time milk Allergy Gastrointestinal Verified 08/30/23 15:51 Upset mite-Dermatophagoides Allergy Dry Eye Verified 08/30/23 15:51 asael pisano [dust mite - [place]] Review of Systems Review of Systems: Yes all other systems are reviewed and are negative PMFSH Past Medical History Onset Date is defined in the Problem List Problems that require an onset date and time if occurred within 24 hrs of arrival to the ED Aortic Dissection and Rupture; Neurologic impairment; Cardiopulmonary Arrest; Endotracheal Intubation; Insertion or Replacement of Mechanical Circulatory Assist Device Medical History PCOS (polycystic ovarian syndrome) Family History Family History Maternal Grandmother Uterine cancer Social History Social History Alcohol intake: current Alcohol intake frequency: holidays/special occasions only Patient Tobacco Use Status: Never used Tobacco Advance Directives: No Advance Directives Information Provided: No Gender identity: Female Physical Exam Vital Signs: Vital Signs: Last Vital Signs Temp 97.8 F 08/30/23 17:11 Pulse 66 08/30/23 17:11 Resp 18 08/30/23 17:11 BP 121/81 08/30/23 17:11 Pulse Ox 100 08/30/23 17:11 O2 Del Method Room Air 08/30/23 17:11 BMI result Body Mass Index 23.2 Appearance: Alert. Oriented X3. No acute distress. Eyes: No pallor ENT: Pharynx normal. Oral Mucosa moist Neck: Normal inspection. Neck supple. CVS: Normal heart rate and rhythm. Pulses normal. Respiratory: No respiratory distress. Equal air entry bilateral, Abdomen: Soft and nontender. Bowel sounds are present, no mass palpable, no CVA tenderness Skin: Skin warm and dry. Normal skin color. Normal skin turgor. Extremities: No lower extremity edema. Neuro: Oriented X 3. Course Course Course Narrative: RME:?28 year old female presents to the ED for methotrexate treatment. Patient has been undergoing evaluation by Dr. Teran for who has been monitoring her hCG levels over the last 2 weeks. The levels have remained low and have not doubled. All other labs were wnl. She endorses previous that passed on its own. Has never required procedure. sent from [facility] office for MTX administratiton. Full HPI, ROS and PE to be performed by the primary ED provider. Medications Administered Discontinued Medications Generic Name Dose Route Start Last Admin Trade Name Freq PRN Reason Stop Dose Admin Methotrexate 75 mg/ IV 3 mls @ 0 mls/hr 08/30/23 16:15 08/30/23 17:18 Miscellaneous Supplies IM 08/30/23 16:16 3 mls/hr ONCE ONE Administration Medical Decision Making Medical Decision Making MDM Narrative: Patient received 75 mg of methotrexate injection as instructed by Dr. Teran patient will be followed up with doctors before next shot in 1 week Discharge Plan Discharge Clinical Impression: Nonviable Patient Disposition: Home, Self-Care Instructions: Miscarriage (ED) Additional Instructions: Follow-up with your vector control assistant for instructions and management You have received methotrexate injection today Prescriptions: No Action etonogestrel-ethinyl estradiol [NuvaRing] 0.12-0.015 mg/24 hr ring 1 vag ring vaginal Q4W Qty: 3 0RF Rx Instructions: leave in place for 3 weeks of a 4-week cycle Interventions: ED Discharge Assessment Last Done: 08/30/23 17:40 Discharge Date/Time: 08/30/23 17:40
[2023-08-30 17:11] VITALS: BP 121/81; PULSE 66; RESP 18; TEMP 36.6; O2SAT 100
== END 2023-08-30 17:40 | disposition home or self-care (01) ==
PROVIDERS: Emergency Provider Internal Medicine
DX: O03.4 Incomplete spontaneous abortion without complication (principal)
CPT/HCPCS: 96372; 99283; 99284; J9250

== ENCOUNTER 2023-09-02 07:14 | Outpatient (REF) | payer OTHER, SELFPAY ==
[2023-09-02 08:04] LABS: Alanine Aminotransferase 10 U/L (0-31); Aspartate Amino Transferase 14 U/L (5-31); Estimated Glomerular Filt Rate > 60; HCG Quantitative 35 mIU/mL
== END 2023-09-02 07:15 | disposition home or self-care (01) ==
LOC: HO.LAB 07:14
PROVIDERS: PCP Internal Medicine; Visit Provider Obstetrics & Gynecology
DX: Z34.90 Encounter for supervision of normal pregnancy, unspecified, unspecified trimester (principal)
CPT/HCPCS: 36415; 82565; 84450; 84460; 84702

== ENCOUNTER 2023-09-05 11:40 | Outpatient (REF) | payer OTHER, SELFPAY ==
[2023-09-05 12:39] LABS: HCG Quantitative 26 mIU/mL
== END 2023-09-05 11:41 | disposition home or self-care (01) ==
LOC: HO.LAB 11:40
PROVIDERS: Visit Provider Obstetrics & Gynecology
DX: Z34.90 Encounter for supervision of normal pregnancy, unspecified, unspecified trimester (principal)
CPT/HCPCS: 36415; 84702; 99212

== ENCOUNTER 2023-09-05 12:17 | Outpatient (AMB) | payer OTHER, SELFPAY ==
[2023-09-05 12:19] VITALS: BP 110/60; BMI 23.2
--- NOTE | 2023-09-05 12:19 | A.OFFVIS_ITS ---
Intake Vital Signs 09/05/23 12:19 Height 5 ft Weight 119 lb 0.794 oz BMI 23.2 BP 110/60 Intake Visit Reasons: HCG follow up Allergies milk Allergy (Verified 08/30/23 15:51) Gastrointestinal Upset mite-Dermatophagoides farinae, asael [dust mite - [place]] Allergy (Verified 08/30/23 15:51) Dry Eye HPI HPI Comments History of Present Illness Details Presenting day 7 status post methotrexate. Day 4 hCG was 35 today's hCG down to 26. The patient is doing well with no complaints, no nausea or vomiting abdominal pain or vaginal bleeding. The patient was prescribed NuvaRing but did not started yet and has not had any unprotected intercourse yes PFS Medical History PCOS (polycystic ovarian syndrome) Family History Maternal Grandmother Uterine cancer Social History Alcohol intake: current Alcohol intake frequency: holidays/special occasions only Patient Tobacco Use Status: Never used Tobacco Gender identity: Female Female Reproductive History Menstrual Age of Menarche: 9 Review of Systems Const All systems reviewed & are unremarkable except as noted in HPI and below Reports as per HPI and Reports no additional complaints GI Reports no additional complaints Reports no additional complaints Physical Exam Vital Signs: Last Vital Signs BP 110/60 09/05/23 12:19 BMI result Body Mass Index 23.2 GI Palpation (GI): Soft to palpation and nontender Percussion: Yes normal to percussion Auscultation: normal bowel sounds Assessment & Plan Assessment & Plan (1) Early stage of : Comment: Abnormal hCG Code(s): Z34.90 - Encounter for supervision of normal , unspecified, unspecified trimester Plan: Discussed with the patient the results of hCG more than 15% drop from day 4 to day 7. Repeat hCG weekly and follow it to non level periods instruc tions given the patient to call or go to the emergency room in case of abdominal pain and/or vaginal bleeding. Instructions given the patient to schedule a 1 week hCG follow-up appointment. Instructed patient to start on NuvaRing and use a backup method for control for the 1st 2 weeks to prevent Discussed with the patient that Methotrexate is cleared from the serum before the 4 to12 weeks necessary for the resolution of the ectopic gestation and ovulation in the next cycle . However, there are reports of methotrexate detectable in liver cells 116 days past exposure . Limited evidence suggests that the frequency of congenital anomalies or early loss is not elevated in women who have become shortly after methotrexate exposure . However, perhaps based on the timing of methotrexate clearance from the body, some experts continue to recommend that women delay for at least 3 months after the last dose of methotrexate. All questions answered, the patient verbalized understanding Orders: Orders HCG Quantitative 1 Week Z34.90 - Encounter for supervision of normal , unspecified, unspecified trimester Coding Level of Care Code Est Pt Level 3 (17350) Diagnoses Early stage of Z34.90
== END 2023-09-05 13:24 | disposition home or self-care (01) ==
LOC: HO.HWS 12:18
PROVIDERS: PCP Internal Medicine; Visit Provider Obstetrics & Gynecology
DX: Z34.90 Encounter for supervision of normal pregnancy, unspecified, unspecified trimester (principal)
CPT/HCPCS: 99213

== ENCOUNTER 2023-09-11 10:52 | Outpatient (REF) | payer OTHER, SELFPAY ==
[2023-09-11 11:29] LABS: HCG Quantitative 14 mIU/mL
== END 2023-09-11 10:53 | disposition home or self-care (01) ==
LOC: HO.LAB 10:52
PROVIDERS: Visit Provider Obstetrics & Gynecology
DX: Z34.90 Encounter for supervision of normal pregnancy, unspecified, unspecified trimester (principal); Z79.899 Other long term (current) drug therapy
CPT/HCPCS: 36415; 84702; 99212

== ENCOUNTER 2023-09-11 13:46 | Outpatient (AMB) | payer OTHER, SELFPAY ==
--- NOTE | 2023-09-11 13:47 | MHC.OFFVIS ---
Intake Vital Signs 09/11/23 13:48 Height 5 ft Weight 119 lb BMI 23.2 BP 106/60 Intake Visit Reasons: 1 week HCG follow up Allergies milk Allergy (Verified 08/30/23 15:51) Gastrointestinal Upset mite-Dermatophagoides farinae, asael [dust mite - [place]] Allergy (Verified 08/30/23 15:51) Dry Eye HPI HPI Comments History of Present Illness Details Presenting 1 week for hCG follow-up, received methotrexate 2 weeks ago. Day 7 hCG dropped down from 35 to 26. The patient is doing well with no complaints, no nausea or vomiting abdominal pain or vaginal bleeding. HCG today was 14 [facility] Medical History PCOS (polycystic ovarian syndrome) Family History Maternal Grandmother Uterine cancer Social History Alcohol intake: current Alcohol intake frequency: holidays/special occasions only Patient Tobacco Use Status: Never used Tobacco Gender identity: Female Female Reproductive History Menstrual Age of Menarche: 9 Review of Systems Const All systems reviewed & are unremarkable except as noted in HPI and below Reports as per HPI and Reports no additional complaints GI Reports no additional complaints Reports no additional complaints Physical Exam Vital Signs: Last Vital Signs BP 106/60 09/11/23 13:48 BMI result Body Mass Index 23.2 Assessment & Plan Assessment & Plan (1) Early stage of : Comment: Abnormal hCG Code(s): Z34.90 - Encounter for supervision of normal , unspecified, unspecified trimester Plan: Discussed with the patient the drop in hCG down to 14, will for repeat hCG weekly and follow it down to non levels. HCG ordered weekly Discussed with the patient that Methotrexate is cleared from the serum before the 4 to12 weeks necessary for the resolution of the ectopic gestation and ovulation in the next cycle . However, there are reports of methotrexate detectable in liver cells 116 days past exposure . Limited evidence suggests that the frequency of congenital anomalies or early loss is not elevated in women who have become shortly after methotrexate exposure . However, perhaps based on the timing of methotrexate clearance from the body, some experts continue to recommend that women delay for at least 3 months after the last dose of methotrexate. All questions answered, the patient verbalized understanding. Instructions given the patient to schedule a follow-up hCG appointment in 2 weeks Orders: Orders HCG Quantitative 1 Week Z34.90 - Encounter for supervision of normal , unspecified, unspecified trimester HCG Quantitative 2 Weeks Z34.90 - Encounter for supervision of normal , unspecified, unspecified trimester Coding Level of Care Code Est Pt Level 3 (39306) Diagnoses Early stage of Z34.90
[2023-09-11 13:48] VITALS: BP 106/60; BMI 23.2
== END 2023-09-11 14:09 | disposition home or self-care (01) ==
LOC: HO.HWS 13:46
PROVIDERS: PCP Internal Medicine; Visit Provider Obstetrics & Gynecology
DX: Z34.90 Encounter for supervision of normal pregnancy, unspecified, unspecified trimester (principal)
CPT/HCPCS: 99213

== ENCOUNTER 2023-09-28 07:33 | Outpatient (REF) | payer OTHER, SELFPAY ==
[2023-09-28 08:13] LABS: HCG Quantitative < 2 mIU/mL
== END 2023-09-28 07:34 | disposition home or self-care (01) ==
LOC: HO.LAB 07:33
PROVIDERS: Visit Provider Obstetrics & Gynecology
DX: Z34.90 Encounter for supervision of normal pregnancy, unspecified, unspecified trimester (principal)
CPT/HCPCS: 36415; 84702; 99212

== ENCOUNTER 2023-09-28 09:13 | Outpatient (AMB) | payer OTHER, SELFPAY ==
--- OUTSIDE RECORDS SUMMARY | 2023-09-28 09:15 | XMS_ITS | Patient Health Record ---
Author Name Unknown Organization [facility] [address] [facility] [address] [place] [address] Care Team Providers Care Bonding Agent Name Role Phone WATSON SMITH Unavailable [phone] JUAN ADAMSEN Unavailable [phone] BENJAMIN GREEN Unavailable [phone] ALLERGIES No Known Allergies RESULTS Component Value Reference Range Notes HEPATITIS PANEL, GENERAL Reviewed date:04/25/2023 02:38:50 PM Interpretation: Performing Lab:NL2, [facility] [id number] [place], [place] [id number] Tiago Young Notes/Report: 0 FASTING:YES FASTING: YES HEPATITIS A AB, TOTAL NON-REACTIVE NON-REACTIVE For additional information, please refer to http://TASS/faq/AEN712 (This link is being provided for informational/ educational purposes only.) HEPATITIS B SURFACE ANTIBODY QL NON-REACTIVE NON-REACTIVE HEPATITIS B SURFACE ANTIGEN NON-REACTIVE NON-REACTIVE For additional information, please refer to http://TASS/faq/BXV367 (This link is being provided for informational/ educational purposes only.) HEPATITIS B CORE AB TOTAL NON-REACTIVE NON-REACTIVE For additional information, please refer to http://TASS/faq/EZR367 (This link is being provided for informational/ educational purposes only.) HEPATITIS C ANTIBODY NON-REACTIVE NON-REACTIVE HCV antibody was non-reactive. There is no laboratory evidence of HCV infection. In most cases, no further action is required. However, if recent HCV exposure is suspected, a test for HCV RNA (test code 40810) is suggested. For additional information please refer to http://Exhibition A.Pressgram.com/faq/HIJ54n1 (This link is being provided for informational/ educational purposes only.) HEMOGLOBIN A1c Reviewed date:04/25/2023 02:38:50 PM Interpretation: Performing Lab:MEGHANN [facility] [place], [place] [id number] Tiago Young Notes/Report: 0 FASTING:YES FASTING: YES HEMOGLOBIN A1c 4.9 <5.7 % of total Hgb For the purpose of screening for the presence of diabetes: <5.7% Consistent with the absence of diabetes 5.7-6.4% Consistent with increased risk for diabetes (prediabetes) > or =6.5% Consistent with diabetes This assay result is consistent with a decreased risk of diabetes. Currently, no consensus exists regarding use of hemoglobin A1c for diagnosis of diabetes in children. According to [place] Diabetes Association (ADA) guidelines, hemoglobin A1c <7.0% represents optimal control in non- diabetic patients. Different metrics may apply to specific patient populations. Standards of Medical Care in Diabetes(ADA). FSH AND LH Reviewed date:06/01/2023 08:25:07 AM Interpretation: Performing Lab:ANTONY2, [facility] [place], [place] [id number] Tiago Young Notes/Report: FSH 4.1 Reference Range Follicular Phase 2.5-10.2 Mid-cycle Peak 3.1-17.7 Luteal Phase 1.5- 9.1 Postmenopausal 23.0-116.3 LH 5.2 Reference Range Follicular Phase 1.9-12.5 Mid-Cycle Peak 8.7-76.3 Luteal Phase 0.5-16.9 Postmenopausal 10.0-54.7 ESTRADIOL Reviewed date:06/01/2023 08:25:07 AM Interpretation: Performing Lab:ANTONY2, [facility] [place], [place] [id number] Tiago Young Notes/Report: ESTRADIOL 21 Reference Range Follicular Phase: 19-144 Mid-Cycle: 64-357 Luteal Phase: 56-214 Postmenopausal: < or = 31 Reference range established on post-pubertal patient population. No pre-pubertal reference range established using this assay. For any patients for whom low Estradiol levels are anticipated (e.g. males, pre-pubertal children and hypogonadal/post-menopausa l females), the [facility] Estradiol, Ultrasensitive, LCMSMS assay is recommended (order code 71812). Please note: patients being treated with the drug fulvestrant (Faslodex(R)) have demonstrated significant interference in immunoassay methods for estradiol measurement. The cross reactivity could lead to falsely elevated estradiol test results leading to an inappropriate clinical assessment of estrogen status. [facility] order code 36704-[id number], Ultrasensitive LC/MS/MS demonstrates negligible cross reactivity with fulvestrant. PROGESTERONE Reviewed date:06/01/2023 08:25:07 AM Interpretation: Performing Lab:NL2, [facility] Tiago Young Notes/Report: PROGESTERONE 0.9 Reference Ranges Female Follicular Phase < 1.0 Luteal Phase 2.6-21.5 Post menopausal < 0.5 1st Trimester 4.1-34.0 2nd Trimester 24.0-76.0 3rd Trimester 52.0-302.0 T4, FREE Reviewed date:06/01/2023 08:25:07 AM Interpretation: Performing Lab:NL2, [facility] Tiago Young Notes/Report: T4, FREE 1.0 0.8-1.8 ng/dL TSH Reviewed date:06/01/2023 08:25:07 AM Interpretation: Performing Lab:NL2, [facility] Tiago Young Notes/Report: TSH 0.53 Reference Range > or = 20 Years 0.40-4.50 Ranges First trimester 0.26-2.66 Second trimester 0.55-2.73 Third trimester 0.43-2.91 T3, FREE Reviewed date:06/01/2023 08:25:07 AM Interpretation: Performing Lab:NL2, [facility] Tiago Young Notes/Report: T3, FREE 4.0 2.3-4.2 pg/mL TESTOSTERONE, FREE (DIALYSIS ) AND TOTAL,MS Reviewed date:06/05/2023 09:31:57 AM Interpretation: Performing Lab:TJ [facility] [id number] Jaymie Martinez, [id number] Aris Jiang M.D.,PhD Notes/Report: TESTOSTERONE, TOTAL, MS 28 2-45 ng/dL For additional information, please refer to http://education.Pressgram.NudgeRx/faq/ TotalTestosteroneLCMSMSFAQ 165 (This link is being provided for informational/ educational purposes only.) This test was developed and its analytical performance characteristics have been determined by [facility] [place], [place]. It has not been cleared or approved by the U.S. Food and Drug Administration. This assay has been validated pursuant to the CLIA regulations and is used for clinical purposes. TESTOSTERONE, FREE 3.0 0.1-6.4 pg/mL This test was developed and its analytical performance characteristics have been determined by [facility] [place], [place]. It has not been cleared or approved by the U.S. Food and Drug Administration. This assay has been validated pursuant to the CLIA regulations and is used for clinical purposes. REASON FOR REFERRAL No Information MEDICATIONS Medication SIG (Take, Route, Frequency, Duration) Notes Start Date End Date Status Sertraline HCl 25 MG 1 tablet Orally Onc e a day for 30 day(s) 07/19/2021 Not-Taking Zoloft 25 MG 1 tablet Orally Once a day for 30 day(s) 06/09/2022 Active Ferrous Gluconate 324 (38 Fe) MG 1 tablet with water or juice between meals Orally Once a day for 90 days 07/19/2021 Active metFORMIN HCl ER 500 MG TAKE 1 TAB FOR 1 WEEK, THE 2 TAB FOR 1 WEEK, 3 TABS FOR A WEEK. ORALLY ONCE A DAY 30 DAY(S) for 90 Active Azithromycin 500 MG 1 tablet Orally for 10 day(s) 06/17/2022 Active IMMUNIZATIONS Vaccine Route Administration Date Status Comme nts DTaP Unknown 1995 Administered DTaP Unknown 01/27/1996 Administered DTaP Unknown 02/26/1996 Administered DTaP Unknown 04/28/1997 Administered DTaP Unknown 11/27/1999 Administered DTaP Unknown 06/29/2005 Administered Hep B, adolescent or pediatr ic (11-19), 3 dose schedule Unknown 1995 Administered Hep B, adolescent or pediatr ic (11-19), 3 dose schedule Unknown 1995 Administered Hep B, adolescent or pediatr ic (11-19), 3 dose schedule Unknown 06/28/1996 Administered Hib, unspecified formulation Unknown 1995 Adminis tered Hib, unspecified formulation Unknown 01/27/1996 Adminis tered Hib, unspecified formulation Unknown 12/26/1996 Adminis tered HPV (human papillomavirus), quadrivalent, 3 dose schedule Unknown 08/15/2008 Administered HPV (human papillomavirus), quadrivalent, 3 dose schedule Unknown 12/15/2008 Administered Influenza, seasonal, injecta ble, 6-35 months Unknown 05/31/2008 Administered MMR Unknown 12/26/1996 Administered MMR Unknown 09/28/2000 Administered MMR Unknown 10/09/2000 Administered Moderna Covid-19 Vaccine Unknown 04/28/2021 Administere d OPV Unknown 01/27/1996 Administered OPV Unknown 02/26/1996 Administered OPV Unknown 04/28/1997 Administered OPV Unknown 11/27/1999 Administered Tdap Unknown 10/01/2020 Administered Varicella Unknown 12/26/1996 Administered Varicella Unknown 08/05/2009 Administered SOCIAL HISTORY Tobacco Use: Social History Observation Description Date Details (start date - stop date) Never Smoker NA - NA Sex Assigned At : Social History Observation Description Sex Assigned At Unknown Tobacco Use/Smoking Question Answer Notes Are you a nonsmoker PROBLEMS Problem Type ICD Code Onset Dates Problem Status W/U Status Risk SNOMED Code Notes Problem Adult general medical exam (Z00.00) Active confirmed Adult health examination (491511685) Problem Vitamin D deficiency (E55.9) Active confirmed Vitamin D deficiency (98011340) Problem Hepatitis (K75.9) Active confirmed [id number] Encounters Encounter Location Date Provider Diagnosis [facility] [address] [place] [address] 04/12/[address] [facility] [address] [place] [address] 07/11[facility]20[facility] [address] [place] [address] 07/24/2023 [facility] [address] [place] [address] 01/03/[address] [facility] [address] [facility] [place] [address] 04/10/2023 WATSON SMITH Hepatitis K75.9 [facility] [address] [facility] [place] [address] 04/11/[address] [facility] [address] [facility] [place] [address] 04/13/[address] [facility] [address] [place] [address] 04/14/2023 HERNAN ADAMS Hair loss L65.9 and Fatigue, unspecified type R53.83 [facility] [address] [facility] [place] [address] 04/18/[address] [facility] [address] [facility] [place] [address] 05/01/[address] [facility] [address] [place] [address] 05/31/2023 HERNAN ADAMS [facility] [address] [address] 04/14/2023 WATSON SMITH ASSESSMENTS Encounter Date Diagnosis Assessment Notes Treatment Notes Treatment Clinical Notes 04/10/2023 Hepatitis (ICD-10 - K75.9) 04/14/2023 Hair loss (ICD-10 - L65.9) 04/14/2023 Fatigue, unspecified type (ICD-10 - R53.83) PLAN OF TREATMENT Pending Test Test Name Order Date FSH AND LH 04/14/2023 HEMOGLOBIN A1c 06/09/2022 ESTRADIOL 04/14/2023 PROGESTERONE 04/14/2023 T4, FREE 04/14/2023 TSH 04/14/2023 T3, FREE 04/14/2023 TESTOSTERONE, FREE (DIALYSIS) AND TOTAL, MS 04/14/2023 Insurance Providers Payer Name Payer Address Payer Phone Subscriber Number Group Number Insured Name Patient Relationship to Insured Coverage Start Date Coverage End Date [employer] [address] [place] [phone] [id number] Molly Skaggs Self - patient is the insured MEDICAL (GENERAL) HISTORY Medical History History ICD Code Cyst of left ovary N83.202 Anxiety F41.9
--- NOTE | 2023-09-28 09:19 | A.OFFVIS_ITS ---
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 The patient status post methotrexate ECG done today was less than 2. The patient was started on control pills. No complaints, no pelvic pain and /or bleeding PFSH Medical History PCOS (polycystic ovarian syndrome) Family History Maternal Grandmother Uterine cancer Social History Alcohol intake: current Alcohol intake frequency: holidays/special occasions only Patient Tobacco Use Status: Never used Tobacco Gender identity: Female Female Reproductive History Menstrual Age of Menarche: 9 control method: vaginal ring Review of Systems Const All systems reviewed & are unremarkable except as noted in HPI and below Reports as per HPI and Reports no additional complaints GI Reports no additional complaints Reports no additional complaints Physical Exam Vital Signs: Last Vital Signs BP 108/64 09/28/23 09:20 BMI result Body Mass Index 23.2 Assessment & Plan Assessment & Plan (1) Early stage of : Comment: Abnormal hCG- Resolved Code(s): Z34.90 - Encounter for supervision of normal , unspecified, unspecified trimester Plan: Discussed with the patient hCG is less than 2, instructions given the patient to call in case of pelvic pain and or abnormal vaginal bleeding, all questions answered, the patient verbalized understanding Coding Level of Care Code Est Pt Level 3 (55651) Diagnoses Early stage of Z34.90
[2023-09-28 09:20] VITALS: BP 108/64; BMI 23.2
== END 2023-09-28 10:09 | disposition home or self-care (01) ==
LOC: HO.HWS 09:13
PROVIDERS: PCP Internal Medicine; Visit Provider Obstetrics & Gynecology
DX: Z34.90 Encounter for supervision of normal pregnancy, unspecified, unspecified trimester (principal)
CPT/HCPCS: 99213

== ENCOUNTER 2023-11-30 11:14 | Outpatient (AMB) | payer OTHER, SELFPAY ==
--- NOTE | 2023-11-30 11:30 | MHC.OFFVIS ---
Intake Vital Signs 11/30/23 11:32 Height 5 ft Weight 116 lb 13.52 oz BMI 22.8 BP 108/62 Intake Visit Reasons: 3 month follow up Allergies milk Allergy (Verified 09/28/23 09:20) Gastrointestinal Upset mite-Dermatophagoides farinae, asael [dust mite - [place]] Allergy (Verified 09/28/23 09:20) Dry Eye HPI HPI Comments History of Present Illness Details Presenting for 3 months control follow-up with no complaints PFSH Medical History PCOS (polycystic ovarian syndrome) Family History Maternal Grandmother Uterine cancer Social History Alcohol intake: current Alcohol intake frequency: holidays/special occasions only Patient Tobacco Use Status: Never used Tobacco Gender identity: Female Female Reproductive History Menstrual Age of Menarche: 9 Review of Systems Const All systems reviewed & are unremarkable except as noted in HPI and below Reports as per HPI and Reports no additional complaints GI Reports no additional complaints Reports no additional complaints Physical Exam Vital Signs: Last Vital Signs BP 108/62 11/30/23 11:32 BMI result Body Mass Index 22.8 Assessment & Plan Assessment & Plan (1) Contraceptive management: Code(s): Z30.9 - Encounter for contraceptive management, unspecified Plan: refill for control pills was recently sent to the patient's pharmacy. Coding Level of Care Code Est Pt Level 3 (82644) Diagnoses Contraceptive management Z30.9
[2023-11-30 11:32] VITALS: BP 108/62; BMI 22.8
== END 2023-11-30 14:03 | disposition home or self-care (01) ==
PROVIDERS: Visit Provider Obstetrics & Gynecology
DX: Z30.9 Encounter for contraceptive management, unspecified (principal)
CPT/HCPCS: 99213

== ENCOUNTER → 2023-11-30 11:14 | Outpatient (BNVA) | payer OTHER, SELFPAY | PROVIDERS: Visit Provider Obstetrics & Gynecology | DX: Z30.9 Encounter for contraceptive management, unspecified (principal) | CPT/HCPCS: 99212 ==

== ENCOUNTER 2024-02-20 10:01 | Outpatient (REF) | payer OTHER, SELFPAY ==
[2024-02-20 10:51] LABS: HCG Quantitative < 2 mIU/mL
== END 2024-02-20 10:02 | disposition home or self-care (01) ==
LOC: HO.LAB 10:01
PROVIDERS: PCP Internal Medicine; Visit Provider Obstetrics & Gynecology
DX: Z30.9 Encounter for contraceptive management, unspecified (principal)
CPT/HCPCS: 36415; 84702; 99212

== ENCOUNTER 2024-02-20 10:29 | Outpatient (AMB) | payer OTHER, SELFPAY ==
--- NOTE | 2024-02-20 11:39 | MHC.OFFVIS ---
Vital Signs 02/20/24 11:45 Height 5 ft Weight 116 lb 13.52 oz BMI 22.8 BP 110/68 Intake Visit Reasons: HCG follow up per Allergies milk Allergy (Verified 09/28/23 09:20) Gastrointestinal Upset mite-Dermatophagoides farinae, asael [dust mite - [place]] Allergy (Verified 09/28/23 09:20) Dry Eye HPI Comments Details: The patient is following up because of a positive test on 02/15. The patient did not use her NuvaRing for 6 weeks between mid December to mid January. No bleeding or cramping and no other complaints. HCG done today was less than 2 PFSH Medical History PCOS (polycystic ovarian syndrome) Family History Maternal Grandmother Uterine cancer Social History Alcohol intake: current Alcohol intake frequency: holidays/special occasions only Patient Tobacco Use Status: Never used Tobacco Gender identity: Female Female Reproductive History Menstrual Age of Menarche: 9 Review of Systems Const All systems reviewed & are unremarkable except as noted in HPI and below Reports as per HPI and Reports no additional complaints GI Reports no additional complaints Reports no additional complaints Physical Exam Vital Signs: Last Vital Signs BP 110/68 02/20/24 11:45 BMI result Body Mass Index 22.8 Assessment & Plan Assessment & Plan (1) Contraceptive management: Code(s): Z30.9 - Encounter for contraceptive management, unspecified Category: Medical Plan: Discussed with the patient the results of hCG being less than 2. Instructions given the patient to call in case of a positive test for an hCG quantitative stat and follow it up early in to rule out recurrent ectopic given her history of ectopic . Instructions were given to use a backup method for contraception x 1st 2 week in case no ovarian is not inserted at the scheduled start date, to use Nuvaring x 3 weeks then 1 week off. Instructions given to the pt to discard it if out for >4 hours and start a new ring with 2 weeks back up method for contraception and to schedule a 3 month follow-up appointment. Coding Level of Care Code Est Pt Level 3 (12258) Diagnoses Contraceptive management Z30.9
[2024-02-20 11:45] VITALS: BP 110/68; BMI 22.8
== END 2024-02-20 14:17 | disposition home or self-care (01) ==
PROVIDERS: Visit Provider Obstetrics & Gynecology
DX: Z30.9 Encounter for contraceptive management, unspecified (principal)
CPT/HCPCS: 99213

== ENCOUNTER → 2024-05-31 08:12 | Outpatient (BNVA) | payer OTHER, SELFPAY | PROVIDERS: PCP Internal Medicine; Visit Provider Registered Nurse | DX: S39.012A Strain of muscle, fascia and tendon of lower back, initial encounter (principal); X50.0XXA Overexertion from strenuous movement or load, initial encounter | CPT/HCPCS: 99202 ==

== ENCOUNTER → 2024-06-04 09:53 | Outpatient (BNVA) | payer OTHER, SELFPAY | PROVIDERS: PCP Internal Medicine; Visit Provider Registered Nurse | DX: S39.012A Strain of muscle, fascia and tendon of lower back, initial encounter (principal); X50.0XXA Overexertion from strenuous movement or load, initial encounter | CPT/HCPCS: 99213 ==

== ENCOUNTER → 2024-06-18 08:13 | Outpatient (BNVA) | payer OTHER, SELFPAY | PROVIDERS: PCP Internal Medicine; Visit Provider Registered Nurse | DX: S39.012D Strain of muscle, fascia and tendon of lower back, subsequent encounter (principal); X50.0XXD Overexertion from strenuous movement or load, subsequent encounter | CPT/HCPCS: 99213 ==